=== PATIENT | male | born 1970 | race Hispanic/Latino ===

== ENCOUNTER 2022-10-30 00:04 | Emergency (ER) | payer SELFPAY ==
[2022-10-30] VITALS (11 sets, daily range): BP systolic 110–142; BP diastolic 69–96; PULSE 68–116; RESP 12–24; TEMP 36.6–36.8; O2SAT 96–99
--- NOTE | ~2022-10-30 | CT_ITS ---
EXAMINATION: CT cervical spine wo con DATE: 10/30/2022 02:58 INDICATION: Head injury. TECHNIQUE: Computed tomography (CT) of the cervical spine was performed without intravenous contrast. Automated exposure control and iterative reconstruction technique were employed. The dose-length pro duct was 604.23 mGy-cm. COMPARISON: None FINDINGS: There is 5 degrees dextrocurvature of cervical spine. Vertebral body heights are normal. Th ere is mildly decreased disc height at C5-C6. The following disc levels are specifically discussed: C2-C3: There is no uncovertebral joint osteoarthritis. There is mild left facet joint osteoarthritis. There is no neural foraminal stenosis. There is no central canal stenosis. C3-C4: There is mild bilateral uncovertebral joint osteoarthritis. There is no facet joint osteoarthr itis. There is no neural foraminal stenosis. There is mild central canal stenosis. C4-C5: There is no uncovertebral joint osteoarthritis. There is no facet joint osteoarthritis. There is no neural foraminal stenosis. There is no central canal stenosis. C5-C6: There is moderate left uncovertebral joint osteoarthritis. There is mild bilateral facet joint osteoarthritis. There is no neural foraminal stenosis. There is mild central canal stenosis. C6-C7: There is no uncovertebral joint osteoarthritis. There is mild bilateral facet joint osteoarthr itis. There is no neural foraminal stenosis. There is no central canal stenosis. C7-T1: There is no uncovertebral joint osteoarthritis. There is mild bilateral facet joint osteoarthr itis. There is no neural foraminal stenosis. There is no central canal stenosis. IMPRESSION: 1. No fracture. 2. Mild cervical spondylosis. Reviewed, dictated and finalized at location E.
--- NOTE | ~2022-10-30 | CT_ITS ---
EXAMINATION: CT brain wo con DATE: 10/30/2022 02:57 INDICATION: Head injury. Visual changes. TECHNIQUE: Computed tomography (CT) of the head was performed without intravenous contrast. The mA wa s adjusted according to patient size. Iterative reconstruction technique was employed. The dose-lengt h product was 681.00 mGy-cm. COMPARISON: None FINDINGS: There is a 4.1 x 3.2 x 5.4 cm arachnoid cyst in left frontotemporal region. There is no int racranial hemorrhage, acute infarction, or abnormal intracranial mass lesion. The ventricles are norm al in size. There are fracture deformities of the nasal bones, likely old. There is rightward deviati on of the nasal septum. There is mild mucosal thickening in the paranasal sinuses. The mastoid air ce lls are normal. There are areas of scarring in the scalp. There is right lateral scalp soft tissue sw elling superiorly. IMPRESSION: 1. No acute intracranial pathology. Reviewed, dictated and finalized at location E.
--- NOTE | ~2022-10-30 | CT_ITS ---
EXAMINATION: CT chest abdomen pelvis w con DATE: 10/30/2022 02:58 INDICATION: Trauma. TECHNIQUE: Computed tomography (CT) of the chest, abdomen, and pelvis was performed with 100 mL Omnip aque 350 intravenous contrast. Automated exposure control and iterative reconstruction technique were employed. The dose-length product was 1439.03 mGy-cm. COMPARISON: None FINDINGS: CHEST CT: There is a 4 mm nodule in right lung upper lobe, likely benign. There is mild atelectasis bilaterally . No pleural effusion. The heart size is normal. No pericardial effusion. There is mild aortic athero sclerosis. There is mild bilateral gynecomastia. There is mild thoracic spondylosis. There is mild ch ronic anterior wedging of multiple vertebral bodies. ABDOMEN/PELVIS CT: The liver demonstrates surface nodularity, consistent with cirrhosis. The spleen is mildly enlarged. The gallbladder, pancreas, adrenal glands, and kidneys are normal. There are no dilated loops of humera l. The appendix is normal. There is a splenorenal shunt. There is a periumbilical portacaval shunt. T here are no pathologically enlarged lymph nodes. There is no free intraperitoneal fluid. There is mil d lumbar spondylosis. IMPRESSION: 1. No posttraumatic findings. 2. Cirrhosis of the liver with portal venous hypertension. Reviewed, dictated and finalized at location E.
--- NOTE | 2022-10-30 00:21 | ECG_ITS ---
Measurements Intervals [place] Rate: 96 P: 1 IN: 140 QRS: -4 QRSD: 90 T: 39 QT: 363 QTc: 459 Interpretive Statements SINUS RHYTHM NORMAL ELECTROCARDIOGRAM NO PREVIOUS ECG AVAILABLE FOR COMPARISON Electronically Signed On 10-30-2022 7:30:20 CDT by Varghese Sandhu M.D.
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
[2022-10-30] MEDS: SODIUM CHLORIDE 0.9% IV 1,000 ML 999 ML IV CONT (01:32)
[2022-10-30 01:51] LABS: Ethanol 67 mg/dL (<10)
[2022-10-30 01:52] LABS: Potassium 3.7 mmol/L (3.4-5.0)
[2022-10-30 01:53] LABS: Lactic Acid Reflex 3.5 mmol/L (0.7-2.0)
[2022-10-30 02:00] LABS: Basophils Percent Auto 0.2 % (0.2-1.2); Eosinophils Absolute Auto 0.1 K/mm3 (0-0.3); Eosinophils Percent Auto 0.8 % (0-4.4); Hematocrit 40.6 % (42.0-52.0); Hemoglobin 14.9 g/dL (14.0-18.0); Immature Granulocyte Absolute 0.01 K/mm3 (0.00-0.031); Immature Granulocyte Percent A 0.2 % (0-0.5); Lymphocytes Absolute Auto 1.93 K/mm3 (0.9-3.2); Lymphocytes Percent Auto 29.2 % (18.3-44.2); Mean Corpuscular HGB Conc 36.7 g/dl (32-36); Mean Corpuscular Hemoglobin 31.4 pg (26-34); Mean Corpuscular Volume 85.5 fl (80-100); Mean Platelet Volume 10.4 fl (7.4-10.4); Monocytes Absolute Auto 0.4 K/mm3 (0.1-0.6); Monocytes Percent Auto 6.7 % (2.6-8.5); Neutrophils Absolute Auto 4.2 K/mm3 (1.3-6.7); Neutrophils Percent Auto 62.9 % (45.5-73.1); Platelet Count Result 159 k/mm3 (150-375); Red Blood Count 4.75 M/mm3 (4.6-6.20); White Blood Count 6.6 K/mm3 (4.5-10.0)
[2022-10-30 02:15] LABS: Alanine Aminotransferase 36 U/L (6-50); Albumin Level 4.2 g/dL (3.5-5.1); Alkaline Phosphatase 62 U/L (38-126); Anion Gap 12 mmol/L (8-16); Aspartate Amino Transferase 43 U/L (17-59); Bilirubin,Total 1.1 mg/dL (0.2-1.3); Blood Urea Nitrogen 14 mg/dL (9-20); Carbon Dioxide 19 mmol/L (22-30); Chloride 106 mmol/L (98-107); Estimated Glomerular Filt Rate > 60; Glucose 158 mg/dL (65-110); Sodium 137 mmol/L (137-145)
[2022-10-30 03:12] LABS: Appearance Urine Clear (Clear); Bilirubin Urine Negative (Negative); Blood Urine Negative (Negative); Color Urine Yellow (Yellow); Glucose Urine UA Negative (Negative); Ketones Urine Trace mg/dL (Negative); Leukocyte Esterase Ur Negative LEU/UL (Negative); Nitrate Urine Negative (Negative); Protein Urine Negative (Negative); Specific Grav Ur 1.017 (1.001-1.035); pH Urine 5.5 (5.0-9.0)
[2022-10-30 03:33] LABS: Barbiturate Screen Urine Negative (Negative); Benzodiazepines Screen Urine Negative (Negative)
[2022-10-30 03:42] LABS: Cannabinoid Screen Urine Negative (Negative); Cocaine Screen Urine Negative (Negative); Methadone Screen Urine Negative (Negative); Opiate Screen Urine Negative (Negative); Phencyclidine Screen Urine Negative (Negative)
[2022-10-30 03:51] LABS: Add Urine Microscopic? NO
[2022-10-30 04:22] LABS: Amphetamine Screen Urine Positive (Negative)
[2022-10-30 04:35] LABS: Reflex Lactic Acid Yes or No Add Lactic
[2022-10-30 05:16] LABS: Lactic Acid 1.3 mmol/L (0.7-2.0)
== END 2022-10-30 06:13 ==
PROVIDERS: Emergency Provider Emergency Medicine
DX: S09.90XA Unspecified injury of head, initial encounter (principal); F10.129 Alcohol abuse with intoxication, unspecified; Y90.3 Blood alcohol level of 60-79 mg/100 ml; W22.09XA Striking against other stationary object, initial encounter
CPT/HCPCS: 36415; 70450; 71260; 72125; 74177; 80053; 80307; 81003; 83605; 83735; 85025; 93005; 96360; 99284; J7030; Q9967